=== PATIENT | male | born 1990 | race Caucasian/White ===

== ENCOUNTER 2018-11-04 13:23 | Inpatient (IN) | payer BC, OTHER ==
--- NOTE | 2018-11-04 14:18 | HP ---
HISTORY: Mr. Vigil is a 28-year-old man, who presented to [facility] early this morning with a complaint of insidious onset periumbilical abdominal pain, which started 3 days previously. Pain was initially described as a dull ache associated with some nausea, but no emesis. Pain became intermittent and intensified early this morning to a sharp 10/10 right lower quadrant abdominal pain. Pain is associated with 2 bouts of nonbilious emesis. The patient denies any fevers, but reports some chills earlier today. PAST MEDICAL HISTORY: Denies any previous medical problems. PAST SURGICAL HISTORY: Denies any previous surgeries except for wisdom dental extraction. SOCIAL HISTORY: He is single, lives independently. 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 He denies any cigarette smoking, ethanol, or illicit drug abuse. FAMILY HISTORY: Denies any family history of hypertension, diabetes mellitus, or heart disease. PREHOSPITALIZATION MEDICATIONS: None. ALLERGIES: THE PATIENT DENIES ANY KNOWN DRUG ALLERGIES. REVIEW OF SYSTEMS: A 10-point review of systems is essentially unremarkable except as stated in past medical history and chief complaint. PHYSICAL EXAMINATION: GENERAL: This reveals a 28-year-old normally developed man, who is otherwise coherent and interactive and appears stated age. The patient is alert and oriented x3, appears to be in no acute distress at time of my evaluation. VITAL SIGNS: Include blood pressure 137/75, pulse is 81, respiratory rate is 18, temperature is 99.5 degrees Fahrenheit, oxygen saturation is 98% on room air. HEENT: Reveals normocephalic and atraumatic. Pupils are equal, round, reactive to light and accommodation. Extraocular muscles are intact bilaterally. No scleral icterus is present. Oral mucosa is pink and moist. No lesions are noted. NECK: Supple. No palpable lymphadenopathy or thyromegaly present. HEART: Reveals regular rate and rhythm. No murmurs or gallops auscultated. LUNGS: Clear to auscultation bilaterally. Breathing is regular and nonlabored. ABDOMEN: Soft and nondistended. He has severe right lower quadrant tenderness to palpation. He has a positive Rovsing sign. Liver and spleen are otherwise nonpalpable below costal margin. EXTREMITIES: Reveal 2+ radial and pedal pulses bilaterally. No ankle edema is present. NEUROLOGIC: Reveals no focal deficits present. LABORATORY AND DIAGNOSTIC FINDINGS: Accompanying laboratory studies today include a CBC with 15,200 white blood cells, hemoglobin and hematocrit are 15.8 and 45.2 respectively, platelet count is 259,000. Metabolic profile; sodium 142, potassium 3.9, chloride is 99, bicarb is 28, glucose is 115, BUN 17, creatinine is 1.2. I have personally reviewed the accompanying CT scan of the abdomen and pelvis, which is remarkable for dilated appendix with multiple appendicoliths and significant periappendiceal fat stranding. No pneumoperitoneum is noted. IMPRESSION: Acute appendicitis. PLAN: Laparoscopic appendectomy. Above findings and plan discussed with the patient, who indicates understanding of information given. I have advised him of the risks and benefits of the proposed surgery to include, but not limited to, bleeding, infection, injury to bowel or surrounding structures. The patient indicates understanding of this information and has granted consent for this admission and surgical intervention. Job ID: [id number]
[2018-11-04] MEDS ORDERED: hydrALAZINE 20 MG/ML VIAL SLOW IVP PRN (15:53)
[2018-11-04] MEDS ORDERED: Promethazine HCl 25 MG/ML VIAL IM PRN (15:53)
[2018-11-04] MEDS ORDERED: Dextrose 5% in Water 1,000 ML IV PRN (15:53)
[2018-11-04] MEDS ORDERED: Dextrose 50% Abboject 50 ML SYRINGE SLOW IVP PRN (15:53)
[2018-11-04] MEDS ORDERED: traMADol HCl 50 MG TAB PO PRN (15:56)
[2018-11-04] MEDS ORDERED: Ketorolac Tromethamine 30 MG/ML VIAL ONE (17:25)
[2018-11-04] MEDS ORDERED: PROPOFOL 200 MG/20 ML VIAL ONE (17:25)
[2018-11-04] MEDS ORDERED: Glycopyrrolate 0.2 MG/ML 5 ML SYRINGE ONE (17:25)
[2018-11-04] MEDS ORDERED: Ondansetron PF 4 MG/2 ML Vial ONE (17:25)
[2018-11-04] MEDS ORDERED: Lidocaine 1% PF 5 ML VIAL ONE (17:25)
[2018-11-04] MEDS ORDERED: Succinylcholine Chloride 20 MG/ML 10 ml SYRINGE FS ONE (17:25)
[2018-11-04] MEDS ORDERED: Rocuronium Bromide 10 MG/ML (10ML VIAL) ONE (17:25)
--- NOTE | 2018-11-04 17:31 | OP ---
DATE OF PROCEDURE: 11/04/2018 PREOPERATIVE DIAGNOSIS: Acute appendicitis. POSTOPERATIVE DIAGNOSIS: Acute appendicitis with rupture and pelvic abscess. PROCEDURES PERFORMED: 1. Laparoscopic appendectomy. 2. Drainage of pelvic abscess. ANESTHESIA: General endotracheal. ESTIMATED BLOOD LOSS: 5 mL. FLUIDS GIVEN: 2000 mL of crystalloids. COUNTS: Sponge and instrument counts were verified as correct x2. COMPLICATIONS: None apparent at the time of operation. FINDINGS: Consistent with ruptured retrocecal appendix with 2 appendicoliths in the extraluminal intraperitoneal position. Other findings includes pelvic abscess. DESCRIPTION OF PROCEDURE: Informed consent was obtained from the patient, who was brought to the operating room and placed in the supine position. Following general anesthesia, a Flores catheter was inserted and placed to bedside drain. Abdomen was sterilely prepped and draped in usual fashion. Skin below the umbilicus was infiltrated with 0.25% Marcaine with epinephrine. A small curvilinear infraumbilical incision was made using 11 scalpel. Umbilical stalk was grasped with My and elevated. Veress needle was inserted through the incision and placed in the peritoneal cavity through which the abdomen was insufflated with 3 L of CO2 gas. Intraabdominal pressure was noted at 1 mmHg. Following abdominal insufflation, Veress needle was removed and a 5-mm trocar introduced using a Visiport under laparoscopy. Laparoscopy confirmed proper placement of the port. No injuries to underlying structures. Additional laparoscopy reveals the right lower quadrant obscured by omental adhesions. Also noted was a fair amount of purulent fibrinous exudates in the pelvis. Under direct laparoscopy, two 5-mm suprapubic and left lower quadrant ports were placed after the overlying skin were infiltrated with 0.25% Marcaine with epinephrine and appropriate incision was made. The patient was placed in a Trendelenburg position and rotated to his left. I introduced a Prestige grasper through the left lower quadrant port site using this to bluntly take down omental adhesions to reveal the cecum and retrocecal appendix, which were completely obscured by adhering the distal ileum. This was then bluntly taken off to reveal retrocecal appendix, which had been ruptured in the proximal one-third, but not involving the base. Also noted were 2 appendicoliths, which were outside of the appendiceal lumen. A fair amount of purulence was in the periappendiceal position as well as in the deep pelvis. An Endo Angel Fire forceps was introduced through the suprapubic port site using this to grasp the appendix, which was elevated. The mesoappendix was then sterilely divided down to the base using Endo LigaSure device with good hemostasis. Appendix itself was divided at the appendico-cecal junction between endo-loops. The suppurative appendix was delivered of the abdominal cavity using an Endo Catch. The appendicoliths were also removed and passed off the peritoneal cavity using an Endo Catch. The periappendiceal and deep pelvic abscesses were evacuated using suction. The operative site was copiously irrigated with saline, including the pelvis until it was clear. Finding no other pathology, laparoscopy was terminated. The distal ileum was run from the appendico-cecal junction to distal 3 feet of the ileum. I did not find any Meckel's diverticulum. A #19 Kevin drain was introduced into deep pelvis and allowed to exit the abdominal cavity through the suprapubic port site. The drain was secured to anterior abdominal wall using 2-0 silk suture. The fascia of the left lower quadrant port site was closed using 0 Vicryl suture and endo-closure device. The abdomen was desufflated. All skin incisions were closed using 4-0 Monocryl suture in subcuticular fashion. The patient tolerated the operation without any apparent complication and was returned to recovery room in satisfactory condition. Job ID: [id number]
[2018-11-04 18:27] VITALS: BMI 27.2
[2018-11-04] MEDS: traMADol HCl 50 MG TAB PO PRN (18:34)
[2018-11-04] MEDS: Ketorolac Tromethamine 30 MG/ML VIAL IVP SCH (18:49)
[2018-11-04] MEDS: Piperacillin/Tazobactam 3.375 GM in Sodium Chloride 0.9% 100 ML IVPB SCH (18:56)
[2018-11-04] MEDS: Acetaminophen 500 MG TAB PO SCH (18:58)
[2018-11-04] MEDS: Famotidine 20 MG TAB PO SCH (20:19)
[2018-11-04] MEDS ORDERED: Famotidine/PF 20 mg/2ml Vial SLOW IVP SCH (21:00)
[2018-11-05] MEDS: Ketorolac Tromethamine 30 MG/ML VIAL IVP SCH ×2 (00:08→09:34)
[2018-11-05] MEDS: Piperacillin/Tazobactam 3.375 GM in Sodium Chloride 0.9% 100 ML IVPB SCH ×4 (00:09→18:43)
[2018-11-05] MEDS: Acetaminophen 500 MG TAB PO SCH ×4 (00:57→20:25)
--- NOTE | 2018-11-05 02:08 | PRG ---
DATE OF SERVICE: 11/04/2018 SUBJECTIVE: The patient is postop laparoscopic appendectomy and drainage of a pelvic abscess. The patient is currently awake and alert, in no distress. The patient is tolerating a regular diet at this time. The patient denies any nausea or vomiting. The patient reports mild abdominal soreness at this time. OBJECTIVE: VITAL SIGNS: Temperature 100.2, pulse 80, respirations 20, blood pressure 106/56. GENERAL: The patient is awake and alert, no distress. RESPIRATORY: No respiratory distress. ABDOMEN: Soft and nontender. IMPRESSION: Status post laparoscopic appendectomy with drainage of pelvic abscess. PLAN: Continue regular diet as tolerated. Continue antibiotics. Plan was discussed with the patient, who agrees. Job ID: [id number]
[2018-11-05 05:53] LABS: #Lymphocytes 1.1 thou/uL (1.20-3.40); #Monocytes 0.7 thou/uL (0.11-0.59); #Neutrophils 5.2 thou/uL (1.40-6.50); %Basophils 0.4 % (0.0-1.0); %Eosinophils 0.4 % (0.0-10.0); %Lymphocytes 15.5 % (21.0-51.0); %Monocytes 9.6 % (0.0-10.0); %Neutrophils 74.1 % (42.0-75.0); Hemoglobin 13.3 g/dL (14.0-18.0); Mean Corpuscular HGB CONC 33.4 g/dL (32.0-36.0); Mean Corpuscular Volume 92.7 fL (78.0-98.0); Platelet Count 188 thou/uL (130-400); RBC Distribution Width 12.3 % (11.5-14.5)
[2018-11-05 06:21] LABS: Anion Gap 10 mmol/L (10-20); BUN (Urea Nitrogen) 21 mg/dL (8.9-20.6); Calc. Creatinine Clearance 76 mL/min (70-130); Calcium 7.9 mg/dL (7.8-10.44); Carbon Dioxide 27 mmol/L (22-29); Chloride 101 mmol/L (98-107); Estimated GFR-MDRD 46; Glucose 98 mg/dL (70-105); Magnesium 1.1 mg/dL (1.6-2.6); Phosphorus 3.4 mg/dL (2.3-4.7); Potassium 4.1 mmol/L (3.5-5.1); Sodium 134 mmol/L (136-145)
[2018-11-05] MEDS: Enoxaparin Sodium 40 MG/0.4 ML SYRINGE SC SCH (09:34)
[2018-11-05] MEDS: Famotidine 20 MG TAB PO SCH (10:16)
[2018-11-05] MEDS ORDERED: Ibuprofen 600 MG TAB PO SCH (12:00)
--- NOTE | 2018-11-05 13:35 | PRG ---
DATE OF SERVICE: 11/05/2018 SUBJECTIVE: Mr. Vigil is a 28-year-old man who is postop day #1, status post laparoscopic appendectomy and drainage of pelvic abscess for rupture of the appendix. The patient is awake and alert this morning reporting adequate pain control. He is tolerating clear liquid diet. He did have loose bowel movements this morning. OBJECTIVE: VITAL SIGNS: Otherwise include blood pressure 106/56, pulse is 70, respiratory rate is 18, temperature is 98 degrees Fahrenheit, oxygen saturation is 98% on room air. Maximum temperature since admission is 100.5 degrees Fahrenheit. HEART: Reveals regular rate and rhythm. No murmurs or gallops auscultated. LUNGS: Clear to auscultation bilaterally. Breathing, regular and nonlabored. ABDOMEN: Soft and nondistended with incisional tenderness to palpation. Juice-Us drain returns 100 mL of seropurulent fluid. NEUROLOGIC: Reveals no focal deficits present. LABORATORY FINDINGS: Include a CBC with 7000 white blood cells. Hemoglobin and hematocrit 13.3 and 39.9 respectively. The platelet count is 188,000. Metabolic profile: Sodium 134, potassium 4.1, chloride is 101, bicarb is 27, BUN is 21, creatinine is 1.79, glucose is 98, magnesium is 1.1. IMPRESSIONS: Postoperative day #1, status post laparoscopic appendectomy and drainage of pelvic abscess. PLAN: Advance diet and avoid nephrotoxic agents. We will repeat chemistry tomorrow to monitor for resolution of the acute kidney injury. Job ID: [id number]
[2018-11-05] MEDS: traMADol HCl 50 MG TAB PO PRN (16:03)
[2018-11-05] MEDS ORDERED: Chloraseptic Spray 180 ml Bottle PO PRN (21:56)
[2018-11-06] MEDS: Piperacillin/Tazobactam 3.375 GM in Sodium Chloride 0.9% 100 ML IVPB SCH ×2 (01:00→06:30)
[2018-11-06] MEDS: Acetaminophen 500 MG TAB PO SCH ×4 (01:00→20:32)
--- NOTE | 2018-11-06 01:26 | PRG ---
DATE OF SERVICE: 11/06/2018 SUBJECTIVE: The patient is hospital day #2, postop day #1, status post laparoscopic appendectomy and drainage of pelvic abscess for rupture of the appendix. The patient does still have his NANCY drain in, which reportedly has put out 60 mL today. The patient states that he is tolerating a diet. His pain is controlled. He did have a loose bowel movement today. OBJECTIVE: VITAL SIGNS: Stable. The patient is afebrile. GENERAL: The patient is resting comfortably in bed. He is awake, alert, and oriented. HEENT: Unremarkable. ABDOMEN: Soft, flat, minimal tenderness. No gross peritoneal signs. Incision sites are clean, dry, and intact. NANCY drain has primarily serosanguineous fluid in it. There does appear to be some scant purulence, but it is again primarily serosanguineous at this time. EXTREMITIES: Neurovascularly intact x4. ASSESSMENT: Postoperative day #1, status post laparoscopic appendectomy and drainage of pelvic abscess. PLAN: Plan will be to continue supportive care, IV antibiotics per Dr. Martins's instructions. Continue to follow NANCY drainage character. Discontinue at appropriate time. Encourage out of bed. Job ID: [id number]
[2018-11-06] MEDS: traMADol HCl 50 MG TAB PO PRN ×2 (06:32→10:56)
[2018-11-06 07:16] LABS: Anion Gap 10 mmol/L (10-20); BUN (Urea Nitrogen) 18 mg/dL (8.9-20.6); Calc. Creatinine Clearance 87 mL/min (70-130); Calcium 8.4 mg/dL (7.8-10.44); Carbon Dioxide 29 mmol/L (22-29); Chloride 103 mmol/L (98-107); Estimated GFR-MDRD 54; Glucose 87 mg/dL (70-105); Potassium 3.6 mmol/L (3.5-5.1); Sodium 138 mmol/L (136-145)
[2018-11-06] MEDS ORDERED: Amoxicillin/Potassium Clav 875 MG TAB PO SCH (09:00)
[2018-11-06] MEDS: Enoxaparin Sodium 40 MG/0.4 ML SYRINGE SC SCH (09:28)
[2018-11-06] MEDS ORDERED: Morphine 4 MG/ML VIAL ONE (10:38)
--- NOTE | 2018-11-06 11:22 | PRG ---
DATE OF SERVICE: 11/06/2018 HISTORY: A 28-year-old man postop day #2, status post laparoscopic appendectomy and drainage of pelvic abscess. The patient reports 7/10 abdominal pain today. He is passing little flatus and having loose bowel movements. OBJECTIVE: VITAL SIGNS: Today include blood pressure 116/55, pulse 73, respiratory rate is 20, temperature is 99.8 degrees Fahrenheit, and oxygen saturation is 98% on room air. HEART: Reveals regular rate and rhythm. LUNGS: Clear to auscultation bilaterally. Breathing, regular and nonlabored. ABDOMEN: Soft, moderately distended, and tender to palpation in all 4 quadrants. Juice-Us drain is returning now more serous than seropurulent. Bowel sounds are hypoactive. LABORATORY DATA: Metabolic profile; sodium 138, potassium 3.6, chloride is 103, bicarb is 29, BUN is 18, creatinine is 1.57 down from 1.79 yesterday. Glucose is 87. The patient is made aware that his creatinine is elevated. He is aware that his creatinine was elevated in 2018 at that time. He has been taking creatinine supplements with his weight training. He denies taking NSAIDs. I have discussed with him that his GFR is abnormal for his age. He is to avoid taking creatinine supplements and to follow up with his primary care physician within one week of being discharged. In the interim, he is to avoid all NSAIDs and steroidal supplements. We will remove the Juice-Us drain today due to his excessive amount of pain. The patient will be observed again for the next 24 hours. He is to increase his activity as tolerated. Job ID: [id number]
[2018-11-06] MEDS: Ondansetron PF 4 MG/2 ML Vial IVP PRN ×2 (11:28→17:47)
[2018-11-06] MEDS: metroNIDAZOLE 500 MG TAB PO SCH ×2 (14:51→20:32)
[2018-11-06] MEDS: traMADol HCl 50 MG TAB PO SCH (17:01)
[2018-11-06] MEDS: Cipro 250 MG TAB PO SCH (20:32)
[2018-11-07] MEDS: traMADol HCl 50 MG TAB PO SCH ×3 (01:19→11:59)
--- NOTE | 2018-11-07 02:08 | PRG ---
DATE OF SERVICE: 11/07/2018 SUBJECTIVE: The patient is postop day #2, status post laparoscopic appendectomy and drainage of pelvic abscess. The patient reportedly had significant pain this morning when the day team examined him. It was noted that his NANCY drain was able to be removed and the patient reports that after his drain was removed, his pain markedly improved. Of note, tonight the patient reportedly had a fever with a temperature max of 103. The patient denies any nausea or chills. He states that he is able to void and he is passing gas. His pain is controlled. OBJECTIVE: VITAL SIGNS: Stable. The patient here is febrile with temperature max of 100.3. After Tylenol and ibuprofen, the patient's temperature was 98.5. GENERAL: The patient is resting side of his bed. He is awake, alert, and oriented x3. HEENT: Unremarkable. LUNGS: Clear to auscultation with good inspiratory and expiratory effort. I had a lengthy discussion with the patient regarding his incentive spirometry, and after instruction and clarification, the patient was able to get well above 2500 on his incentive spirometry. The patient also had a strong cough afterwards. HEART: Regular rate and rhythm. ABDOMEN: Soft. Minimally tender with no gross peritoneal signs. ASSESSMENT: Status post laparoscopic appendectomy and drainage of pelvic abscess. PLAN: Plan will be to continue supportive care. Continue oral antibiotics. Tylenol for fever. Encourage hydration, p.o. intake, mobilization, and incentive spirometry use. Reexamine the patient again tomorrow to evaluate him for possible discharge as long as he remains afebrile and his abdominal exam is unchanged. Job ID: [id number]
[2018-11-07] MEDS: Acetaminophen 500 MG TAB PO SCH ×3 (02:51→14:03)
[2018-11-07] MEDS: Cipro 250 MG TAB PO SCH (05:47)
[2018-11-07] MEDS: Enoxaparin Sodium 40 MG/0.4 ML SYRINGE SC SCH (08:25)
[2018-11-07] MEDS: metroNIDAZOLE 500 MG TAB PO SCH ×2 (08:26→14:03)
[2018-11-07 12:12] VITALS: BP 131/71
[2018-11-07 15:34] VITALS: TEMP 98.3
--- NOTE | 2018-11-09 04:09 | DIS ---
DATE OF ADMISSION: 11/04/2018 DATE OF DISCHARGE: 11/07/2018 DISCHARGING PHYSICIAN: Slim Martins DO ADMITTING DIAGNOSIS: Acute appendicitis. DIAGNOSES ON DISCHARGE: Acute appendicitis with rupture and pelvic abscess. OPERATIONS AND PROCEDURE: Laparoscopic appendectomy with drainage of pelvic abscess on 11/04/[address] Martins. Please see separate dictation for operative report. HISTORY/HOSPITAL COURSE: This is a 28-year-old man, who presented with 3-day history of abdominal pain. Clinical radiographic examination was consistent with acute appendicitis, for which, the patient underwent an uneventful laparoscopic appendectomy and drainage of pelvic abscess. Following this surgery, the patient is admitted to general floor, where he remained at time of discharge. He was placed on intravenous antibiotics until he was tolerating oral intake. By postop day #2, the patient is tolerating a general diet, having bowel movements, although, intermittently febrile. Antibiotics were continued. His pain was better controlled on oral analgesics. By postoperative day #3, he is ambulating with minimum difficulty. His pain adequately controlled on oral analgesics. He has remained hemodynamically stable and afebrile for 24 hours. Incisional wound remains intact, clean, and dry. Abdominal examination reveals no abdominal distention or peritoneal signs. Juice-Us drain had been removed. DISCHARGE INSTRUCTIONS: The patient was discharged home with the following instructions. 1. He is to follow up with me in the Surgery Clinic in 2 weeks. 2. He is to avoid weight lifting in excess of 20 pounds until he has been released by me. 3. He may take Tylenol 1000 mg p.o. q.6 hours p.r.n. pain. 4. He additionally was given a prescription for tramadol 50 mg #30 to be taken 1 to 2 p.o. q.6 hours p.r.n. pain. 5. He is given a prescription for ciprofloxacin 500 mg #10 one p.o. b.i.d. until all taken as well as metronidazole 500 mg #15 to be taken one p.o. t.i.d. until all taken. The patient is to call me with any questions or problems including exacerbation of abdominal pain, intolerance to oral intake, or fever in excess of 101 degrees Fahrenheit. Above instructions given to the patient, who indicated understanding of information given. I have answered his questions. The patient has expressed gratitude for the care rendered to him during this hospitalization and surgery. Job ID: [id number]
== END 2018-11-07 16:38 | disposition home or self-care (01) | DRG 340 ==
LOC: ORTHORAD 13:23 → 3SE 16:36
PROVIDERS: ADMIT Surgery; ATTEND Surgery
PROC: 0DTJ4ZZ Resection of Appendix, Percutaneous Endoscopic Approach (ICD-10-PCS; principal; 2018-11-04)
PROC: 0W9G40Z Drainage of Peritoneal Cavity with Drainage Device, Percutaneous Endoscopic Approach (ICD-10-PCS; 2018-11-04)
DX: K35.33 Acute appendicitis with perforation, localized peritonitis, and gangrene, with abscess (principal); Z98.818 Other dental procedure status
CPT/HCPCS: 36415; 80048; 83735; 84100; 85025; 87070; 87077; 87186; 87205; 88304; J1650; J1885; J2001; J2270; J2405; J2543; J2704; J3490

== ENCOUNTER 2018-11-08 17:59 | Inpatient (IN) | payer BC, OTHER ==
[~2018-11-08 17:59] MED LIST: ISOVUE-370 76%-LOCM 1 ML ONE; Iopamidol 370 76% 50 ML VIAL FS ONE
[2018-11-08 19:24] LABS: Hemoglobin 12.8 g/dL (14.0-18.0); Mean Corpuscular HGB CONC 34.2 g/dL (32.0-36.0); Mean Corpuscular Hemoglobin 31.2 pg (27.0-31.0); Mean Corpuscular Volume 91.1 fL (78.0-98.0); Mean Platelet Volume 6.7 fL (7.4-10.4); Platelet Count 286 thou/uL (130-400); RBC Distribution Width 12.1 % (11.5-14.5); White Blood Cell (WBC) Count 5.1 thou/uL (4.8-10.8)
[2018-11-08 19:47] LABS: ALT (SGPT) 38 U/L (8-55); AST (SGOT) 38 U/L (5-34); Albumin 3.7 g/dL (3.5-5.0); Alkaline Phosphatase 74 U/L (40-150); Anion Gap 12 mmol/L (10-20); BUN (Urea Nitrogen) 14 mg/dL (8.9-20.6); Bilirubin, Total 0.3 mg/dL (0.2-1.2); Calc. Creatinine Clearance 0 mL/min (70-130); Calcium 9.3 mg/dL (7.8-10.44); Carbon Dioxide 27 mmol/L (22-29); Chloride 103 mmol/L (98-107); Estimated GFR-MDRD 67; Glucose 95 mg/dL (70-105); Potassium 3.9 mmol/L (3.5-5.1); Protein, Total 6.7 g/dL (6.0-8.3); Sodium 138 mmol/L (136-145)
[2018-11-08 19:52] LABS: Band 9 % (5-11); Eosinophils 3 % (0-10); Lymphocytes 14 % (21-51); MDiff Complete? YES; Monocytes 11 % (0-10); Neutrophil 59 % (42-75); Platelet Morphology Comment Appears Adequate; RBC Morphology Normal; Reactive Lymphocytes 3 % (0-10)
--- NOTE | 2018-11-08 19:54 | RAD ---
Frontal radiograph chest: 11/08/2018 COMPARISON: None HISTORY: Fever FINDINGS: Lungs are clear. Heart and mediastinal contours are unremarkable. Impression: No acute findings.
[2018-11-08 20:04] LABS: Bilirubin Negative (Negative); Blood, Urine Negative (Negative); Clarity Clear (Clear); Glucose, Urine (Dipstick) Normal (Negative); Leukocyte Negative Leu/uL (Negative); Nitrite Negative (Negative); Protein, Urine (Dipstick) 20 mg/dL (Neg-Trace); Urobilinogen Normal mg/dL (Less than 2)
[2018-11-08] MEDS ORDERED: Ketorolac Tromethamine 30 MG/ML VIAL ONE (22:49)
--- NOTE | 2018-11-08 22:59 | CT ---
CT of abdomen and pelvis: 11/08/2018 COMPARISON: None HISTORY: Fever, recent appendectomy TECHNIQUE: Axial CT imaging at 5 mm intervals from lung bases through pubic symphysis with IV and ora l contrast. Coronal and sagittal reformatted imaging obtained. FINDINGS: Imaged lung bases are unremarkable. No free intraperitoneal air. The liver, gallbladder, and spleen appear unremarkable. The pancreas, adrenal glands, and right kidne y appear unremarkable. The left kidney is markedly atrophic. There is extensive inflammatory fat stranding within the central aspect of the pelvis and the lower q uadrants of the pelvis, right greater than left. The sigmoid colon is decompressed and demonstrates probable wall thickening. There is no evidence for bowel obstruction. There is wall thickening of mul tiple loops of distal small bowel, including terminal ileum. There is a rim-enhancing fluid collection within the right lower quadrant, best seen on axial image 64, measuring 5.9 x 3.5 x 2.7 cm , suspicious for an abscess. This is not amenable to percutaneous drainage secondary to overlying structures. There is a ill-defined area of fluid density anterior to the psoas muscle on the left, be st seen on image 59, measuring 3.2 x 2.2 cm. This measures approximately 5.2 cm in craniocaudal dimension. It does not demonstrate rim enhancement at this time. This could signify developing absces s. Multiple mildly enlarged lymph nodes are noted within the retroperitoneum and the mesentery, likely r eactive in nature. There are a few punctate foci of gas within the ventral soft tissues of the abdomen/pelvis consistent with recent surgery. Imaged osseous structures demonstrate no worrisome lytic or blastic bone lesions. Vascular structures of the abdomen/pelvis appear patent. IMPRESSION: Prominent inflammatory fat stranding within the central pelvis and bilateral lower quadra nts, right greater than left. Question a history of perforated appendicitis given provided history of appendectomy 4 days ago. There is wall thickening of the sigmoid colon and the distal small bowel adjacent to this inflammatory change, likely reflecting secondary inflammation. There is a fluid collection within the right lower quadrant suspicious for abscess. There is an additional ill-defined area of fluid within the left lower quadrant which may represent a developing abscess/phlegmon. No evidence for small bowel obstruction.
[2018-11-08] MEDS ORDERED: Piperacillin/Tazobactam 4.5 GM VIAL ONE (23:52)
[2018-11-09] MEDS ORDERED: Ondansetron ODT 4 MG TAB SL PRN (00:51)
[2018-11-09] MEDS ORDERED: Ondansetron PF 4 MG/2 ML Vial IVP PRN (00:51)
[2018-11-09] MEDS ORDERED: Acetaminophen 1,000 MG in Premix Bag 1 BAG IVPB PRN (00:53)
[2018-11-09] MEDS ORDERED: Morphine 4 MG/ML VIAL SLOW IVP PRN ×2 (00:58→08:29)
[2018-11-09 01:36] VITALS: BMI 27.1
[2018-11-09] MEDS: Lactated Ringer's 1,000 ML IV SCH ×3 (03:21→08:26)
[2018-11-09 05:53] LABS: Eosinophils 1 % (0-10); Hemoglobin 12.5 g/dL (14.0-18.0); Hypochromia SLIGHT = 6-15 cells (100X) (0-5/hpf); Lymphocytes 34 % (21-51); MDiff Complete? YES; Mean Corpuscular HGB CONC 34.1 g/dL (32.0-36.0); Mean Corpuscular Hemoglobin 31.1 pg (27.0-31.0); Monocytes 13 % (0-10); Neutrophil 52 % (42-75); Platelet Count 280 thou/uL (130-400); Platelet Morphology Comment Appears Adequate; RBC Distribution Width 12.3 % (11.5-14.5); Red Blood Cell (RBC) Count 4.02 mill/uL (4.70-6.10); White Blood Cell (WBC) Count 5.4 thou/uL (4.8-10.8)
[2018-11-09] MEDS ORDERED: Piperacillin/Tazobactam 4.5 GM in Sodium Chloride 0.9% 100 ML IVPB SCH (08:00)
[2018-11-09] MEDS ORDERED: Morphine 2 MG/ML SYRINGE SLOW IVP PRN (08:29)
[2018-11-09] MEDS ORDERED: traMADol HCl 50 MG TAB PO PRN ×2 (08:29)
[2018-11-09] MEDS ORDERED: Acetaminophen 325 MG TAB PO PRN (08:30)
--- NOTE | 2018-11-09 08:32 | PDOC.GSPN ---
Surgery Progress Note: Subj - Subjective Patient reports: feels better (no nausea this am) Surgery Progress Note: Obj - Vital signs Vital signs: Vital Signs - Most Recent Temp Pulse Resp BP Pulse Ox 98.2 F 95 18 122/81 96 11/09/18 07:35 11/09/18 07:35 11/09/18 07:35 11/09/18 07:35 11/09/18 07:35 - Physical Exam General: no distress Cardiovascular: regular rate and rhythm Respiratory: clear to auscultation Abdomen: soft, appropriately tender Wound: healing well Surgery Progress Note: Results - Labs Result Diagrams: 11/09/18 04:55 11/08/18 19:15 Lab results: Laboratory Results - last 24 hr 11/09/18 04:55 WBC 5.4 RBC 4.02 L Hgb 12.5 L Hct 36.6 L MCV 91.0 MCH 31.1 H MCHC 34.1 RDW 12.3 Plt Count 280 MPV 7.0 L Neutrophils % (Manual) 52 Lymphocytes % (Manual) 34 Monocytes % (Manual) 13 H Eosinophils % (Manual) 1 Hypochromia SLIGHT = 6-15 cells Plt Morphology Comment Appears Adequate Surgery Progress Note: A/P - Problem (1) Ruptured appendix Current Visit: No Code(s): K35.32 - ACUTE APPENDICITIS WITH PERF AND LOC PERITONITIS, W/O ABSCS Status: Acute - Plan Plan: Readmission for fever -afebrile since admission, WBC normal -fluid in abd could be developing abscess -cont zosyn, advance diet
[2018-11-10] MEDS: Piperacillin/Tazobactam 4.5 GM in Sodium Chloride 0.9% 100 ML IVPB SCH ×2 (01:51→09:03)
[2018-11-10 04:13] LABS: Band 2 % (5-11); Eosinophils 2 % (0-10); Hemoglobin 13.5 g/dL (14.0-18.0); Lymphocytes 38 % (21-51); MDiff Complete? YES; Mean Corpuscular HGB CONC 34.5 g/dL (32.0-36.0); Mean Corpuscular Hemoglobin 31.3 pg (27.0-31.0); Mean Corpuscular Volume 90.9 fL (78.0-98.0); Mean Platelet Volume 6.9 fL (7.4-10.4); Metamyelocyte 1 % (0-0); Monocytes 6 % (0-10); Neutrophil 50 % (42-75); Platelet Count 335 thou/uL (130-400); Platelet Morphology Comment Appears Adequate; RBC Distribution Width 12.4 % (11.5-14.5); White Blood Cell (WBC) Count 6.6 thou/uL (4.8-10.8)
[2018-11-10 07:42] VITALS: BP 130/77; TEMP 98.6
--- NOTE | 2018-11-11 12:10 | DIS ---
DATE OF ADMISSION: 11/09/2018 DATE OF DISCHARGE: 11/10/2018 ADMISSION DIAGNOSIS: Postoperative fever status post laparoscopic appendectomy and washout. DISCHARGE DIAGNOSIS: Status post laparoscopic appendectomy and drainage of pelvic abscess. CONSULTING PHYSICIAN: None. PROCEDURE: None. HOSPITAL COURSE: Mr. Vigil is a 28-year-old male, who is status post laparoscopic appendectomy in the earlier admission. He was discharged on November 08, 2018. On the same day, the patient was readmitted with chief complaint of fever and abdominal discomfort at home. The patient was admitted for observation; however, he has been afebrile during the course of stay in the hospital. His white count not elevated. His vital has been stable. He tolerated regular diet, and his bowel schedule is normal. He is being discharged today to resume oral antibiotics and will see Dr. Martins in 3 days. DISCHARGE DISPOSITION: Home. DISCHARGE CONDITION: Satisfactory. DISCHARGE INSTRUCTIONS: The patient will continue taking medication as directed. Resume all of his medications from earlier discharge including tramadol, ciprofloxacin, and Flagyl. The patient will be seen by trauma team this coming Sunday. DISCHARGE MEDICATIONS: 1. Tramadol. 2. Flagyl. 3. Ciprofloxacin. Job ID: [id number]
--- NOTE | 2018-11-13 04:24 | PQF ---
[employer] Crystal Reports Winform Viewer YOBANI MATTHEWS HANG PA [id number] SURG B- [id number] CLINICAL DOCUMENTATION CLARIFICATION FORM: POST DISCHARGE Addendum to original discharge summary date: ____ Late entry note date: __ DATE: 11/13/18 ATTN: Osman Bonilla Please exercise your independent, professional judgment in responding to the clarification form. Clinical indicators are provided on the bottom of this form for your review Can you please further specify if fever is due to Abdominal abscess as a complication of post OP laparoscopic appendectomy or not? Please check appropriate box(s): [ ] FEVER DUE TO ABDOMINAL ABSCESS COMPLICATION OF THE PROCEDURE [ ] FEVER DUE TO ABDOMINAL ABSCESS NOT COMPLICATION OF THE PROCEDURE [x ] POSTOPERATIVE FEVER UNSPECIFIED [ ] FEVER DUE TO PSOAS MUSCLE ABSCESS [ ] Other diagnosis please specify [ ] Unable to determine In addition, please specify: Present on Admission (POA): [ ] Yes [ ] No [ ] Unable to determine CLINICAL INDICATORS - SIGNS / SYMPTOMS / LABS General PN 11/09 Dr. Pérez pg.2- ""Readmission for fever" Abdomen/Pelvis CT pg.2- "Question a history of perforated appendicitis given provided history of appendectomy 4days ago" Abdomen/Pelvis CT pg.2- "There is fluid collection within the right lower quadrant suspicious for abscess" Abdomen/Pelvis CT pg.2- There is an additional ill-defined area of fluid within the left lower quadrant which may be represent a developing abscess/ phlegmon DS 11/11/18 page 1- "Postoperative fever" General Surgery PN 11/09 page 2- fluid in abd could be developing abscess DS 11/11/18 page 1- He is being discharge to resume oral antibiotics RISK FACTORS Status post laparoscopic appendectomy and washout- DS 11/11/18 page 1 TREATMENT: Abdomen/Pelvis CT-11/08 IV Fluids- MAR 11/09 Piperacillin (Zosyn)4.5gm IV-APR 27 (This form is maintained as a part of the permanent medical record) 2014 [employer], [place]. All Rights Reserved [email or web address] [not provided] MTDD
== END 2018-11-10 11:30 | disposition home or self-care (01) | DRG 864 ==
LOC: ERS 17:59 → SURG B 11-09 00:56
PROVIDERS: ADMIT Surgery; ATTEND Surgery
DX: R50.82 Postprocedural fever (principal); Z90.49 Acquired absence of other specified parts of digestive tract; Z79.899 Other long term (current) drug therapy
CPT/HCPCS: 36415; 71045; 74177; 80053; 81003; 83605; 85025; 96360; 96361; 96365; J1885; J2270; J2543; J3490; Q9966; Q9967